=== PATIENT | male | born 1970 | race Asian ===

== ENCOUNTER 2023-08-03 07:31 | Outpatient (CLI) | payer BC ==
[2023-08-03] MEDS ORDERED: Iopamidol 300 61% 100 ML VIAL FS ONE (12:50)
== END 2023-08-03 07:32 | disposition home or self-care (01) ==
LOC: CSHCT 07:31
PROVIDERS: ATTEND Family Medicine
DX: R19.00 Intra-abdominal and pelvic swelling, mass and lump, unspecified site (principal); K42.9 Umbilical hernia without obstruction or gangrene
CPT/HCPCS: 74177; Q9967